=== PATIENT | male | born 1960 | race Caucasian/White ===

== ENCOUNTER 2021-02-21 09:35 | Emergency (ER) | payer OTHER ==
[~2021-02-21] VITALS: Ht 172.7 cm; Wt 72.6 kg
--- NOTE | 2021-02-21 09:43 | NUR ---
[facility]IVITY, WAS ASSISTED TO GROUND. NOTED HEAD/ORAL INJURY UPON INITIAL ASSESSMENT. PT UNABLE TO RECALL WHAT HAPPEN. PT STATES NO KNOWN SEIZURE DISORDER. + URINE INCONTENENCE NOTED. GOWNED AND PLACED ON MONITOR. SEIZURE PRECAUTION INITIATED. ON MONITOR. AWAITING MD ALANIS.
--- NOTE | 2021-02-21 09:44 | NUR ---
DR CASTELLANO AT BEDSIDE FOR EVAL.
--- NOTE | 2021-02-21 09:55 | NUR ---
BLOOD DRAWN. SENT TO LAB.
[2021-02-21] MEDS: IV NS 0.9% 500 ML BAG IV ONE ×2 (10:00→11:03)
[2021-02-21 10:01] LABS: BASOPHILS # (AUTO) 0.1 K/uL (0.0-0.2); BASOPHILS % (AUTO) 1.3 % (0.0-2.0); EOSINOPHILS % (AUTO) 2.6 % (0.0-6.0); HEMATOCRIT 40 % (39-51); HEMOGLOBIN 13.4 g/dL (13.5-17.5); LYMPHOCYTES # (AUTO) 1.3 K/uL (0.8-4.8); LYMPHOCYTES % (AUTO) 29.9 % (20.0-44.0); MEAN CORPUSCULAR HGB CONC 34 g/dl (31.0-36.0); MEAN CORPUSCULAR VOLUME 87 fL (80-96); MONOCYTES # (AUTO) 0.4 K/uL (0.1-1.30); MONOCYTES % (AUTO) 9.3 % (2.0-12.0); NEUTROPHILS # (AUTO) 2.5 K/uL (1.8-8.9); NEUTROPHILS % (AUTO) 56.9 % (43.0-81.0); PLATELET COUNT (AUTO) 186 K/uL (150-450); RED BLOOD CELL COUNT(AUTO) 4.52 MIL/uL (4.5-6.0); WHITE BLOOD COUNT (AUTO) 4.4 K/uL (4.3-11.0)
[2021-02-21 10:08] LABS: CALCIUM, SERUM 8.8 mg/dL (8.5-10.1); POTASSIUM 5.6 mmol/L (3.5-5.1)
[2021-02-21 10:13] LABS: ALBUMIN 3.9 g/dL (3.4-5.0); BILIRUBIN,DIRECT 0.2 mg/dL (0.0-0.2); BILIRUBIN,TOTAL 0.5 mg/dL (0.2-1.0); TOTAL PROTEIN, SERUM 7.4 g/dL (6.4-8.2)
--- NOTE | 2021-02-21 10:20 | NUR ---
TAKEN TO RADIOLOGY FOR HEAD CT SCAN VIA GURNEY.
[2021-02-21] MEDS ORDERED: INSULIN REGULAR, HUMAN 100 UNIT/ML 10 ML VIAL ONE (10:57)
[2021-02-21] MEDS ORDERED: FUROSEMIDE 20 MG/2 ML VIAL ONE (10:58)
[2021-02-21] MEDS: FUROSEMIDE 20 MG/2 ML VIAL IV ONE (11:03)
[2021-02-21] MEDS: INSULIN REGULAR, HUMAN 100 UNIT/ML 10 ML VIAL IV ONE (11:06)
[2021-02-21 12:17] LABS: CALCIUM, SERUM 8.3 mg/dL (8.5-10.1); CREATININE 0.9 mg/dL (0.6-1.3)
--- NOTE | 2021-02-21 12:37 | NUR ---
PAGED DR. BORDEN. NOW HAS SPOKEN TO DR. CASTELLANO.
[2021-02-21] MEDS ORDERED: LEVE500T9 PO (12:39)
[2021-02-21 12:55] VITALS: BP 132/81
--- NOTE | 2021-02-21 12:55 | NUR ---
Patient discharged to home in stable condition. Written and verbal after care instructions given. Patient verbalizes understanding of instruction.IV removed. Catheter intact and site benign. Pressure and 4x4 applied to site. No bleeding noted.
== END 2021-02-21 12:56 | disposition home or self-care (01) ==
LOC: ER 09:39
DX: R56.9 Unspecified convulsions (principal); R51.9 Headache, unspecified; I10 Essential (primary) hypertension; E10.9 Type 1 diabetes mellitus without complications
CPT/HCPCS: 36415; 70450; 71045; 80048 ×2; 80076; 85025; 93005; 96361; 96374; 96375; 99285; J1815; J1940; J7030 ×2